=== PATIENT | male | born 1940 | race Caucasian/White ===

== ENCOUNTER 2016-07-26 14:10 | Emergency (ER) | payer OTHER ==
--- NOTE | 2016-07-26 17:56 | ED CLINICAL REPORT ---
Clinical Report - Physicians/Mid Levels [facility] [address] [place] [address] 07/26/2016 14:12 Patient: WALESKA SR Time Seen: 1428. Arrived- By private vehicle. Historian- patient. HISTORY OF PRESENT ILLNESS Chief Complaint: General fatigue. At its maximum, severity described as moderate. When seen in the E.D., severity described as moderate. This started about 2 days ago and is still present. No loss of appetite, weight loss, headache, visual disturbance or fatigue. No weakness. Denies sleep problem. He has had mild muscle aches. No decreased urine output. 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 He was admitted to [facility] last week for this, and then [place]dis[place] and [place] through his PICC line. Patient is getting ertapenem. Patient states that about 2 days ago he just began to feel "punk". He clarifies this to mean that he feels somewhat fatigued and just generally ill. Patient has had a low-grade fever at one point in time, butdoes not complain of fever today. He denies chest or abdominal pain and no shortness of breath or cough. Patient denies any dysuria or low back pain that is unusual for him. Patient denies any redness or increased discharge and his ulcer site.). Similar symptoms previously: None. Recent medical care: The patient was seen recently at another facility. REVIEW OF SYSTEMS No fever, sore throat, sinus drainage, nasal congestion or cough. No difficulty breathing, chest pain, abdominal pain, nausea or vomiting. No diarrhea, black stools, bloody stools, chills or difficulty with urination. No skin rash, back pain, calf pain, headache or blackouts. No double vision. No difficulty with ambulation. All systems otherwise negative, except as recorded above. PAST HISTORY Problems: Wound Infection [Active]. Back Pain. Afib. Additional Surgeries: Appendectomy. Back Surgery. Knee Surgery. Shoulder Surgery. Tonsillectomy. Allergies: Feldene. Iodine. [place]. SOCIAL HISTORY Smoker- current status unknown. No alcohol use or drug use. ADDITIONAL NOTES The nursing notes have been reviewed. PHYSICAL EXAM Vital Signs: 07/26/2016 14:26 BP: 141/63. HR: 87. RR: 18. O2 saturation: 95%. Temp: 97.9 F. Pain level now: 06/05. Have been reviewed. Appearance: Alert. No acute distress. Eyes: Pupils equal, round and reactive to light. Eyes normal inspection. ENT: Nose normal. Neck: Normal inspection. CVS: Normal heart rate and rhythm. Heart sounds normal. Pulses normal. Respiratory: No respiratory distress. Breath sounds normal. Abdomen: No visible injury. Soft and nontender. Back: Normal inspection. CVA tenderness. Skin: Skin warm and dry. Normal skin color. Normal skin turgor. (Patient has an approximately 5 cm diameter, stage III ulcer overlying his right hip. A mild amount of serosanguinous fluid is noted to be draining from the wound; however no pus is noted.). Extremities: Extremities exhibit normal ROM. No lower extremity edema. Neuro: No motor deficit. No sensory deficit. (he patient answers questions appropriately.). LABS, X-RAYS, AND EKG Laboratory Tests: UA-Culture if indicated: (MIGUELANGEL: 07/26/2016 15:45) ( [facility] 17[facility]00[facility] IP Test Result Flag Units (Reference) URINE COLOR YELLOW URINE APPEARANCE CLEAR URINE GLUCOSE NEGATIVE (NEGATIVE) URINE BILIRUBIN NEGATIVE (NEGATIVE) URINE KETONE NEGATIVE (NEGATIVE) URINE SPECIFIC GRAVITY 1.010 (1.010-1.030) URINE PH 5.5 (5.0-8.0) URINE PROTEIN NEGATIVE (NEGATIVE) URINE UROBILINOGEN 0.2 EU/dL (0.2-1.0) URINE NITRITE NEGATIVE (NEGATIVE) URINE BLOOD NEGATIVE (NEGATIVE) URINE LEUK ESTERASE NEGATIVE (NEGATIVE) CBC w Diff: (MIGUELANGEL: 07/26/2016 15:05) ( [facility] 07/26/2016 15:29) Final results Test Result Flag Units (Reference) WHITE BLOOD COUNT 5.9 K/uL (4.5-11.5) RED BLOOD COUNT 3.82 L M/uL (4.50-5.90) HEMOGLOBIN 10.3 L gm/dL (13.5-17.5) HEMATOCRIT 31.9 L % (41.0-53.0) MEAN CELL VOLUME 84 fL (80-100) MEAN CORPUSCULAR HGB 27 pg (26-34) MEAN CORPUSCULAR HGB CONC 32 g/dL (31-37) RED CELL DISTRIBUTION WIDTH 16.4 H % (11.6-14.8) PLATELET COUNT 292 K/uL (150-400) NEUTROPHIL % 61.3 % (50-75) LYMPH % 22.3 L % (25-40) MONO % 9.1 % (3-14) EOSINOPHIL % 6.8 H % (0-4) BASOPHIL % 0.5 % (0-2) CHEM 13 PANEL: (MIGUELANGEL: 07/26/2016 15:05) ( MsgRcvd 07/26/2016 15:57) Final results Test Result Flag Units (Reference) GLUCOSE 107 mg/dL (70-110) BUN 26 H mg/dL (7-18) CREATININE 1.0 mg/dL (0.6-1.3) Estimated GFR >60 mL/min Estimated GFR- >60 mL/min Note: Persistent reduction over 3 months in eGFR<60 mL/min/1.73 m2 defines CKD. Patients with eGFR values>=60 mL/min/1.73 m2 may also have CKD if evidence ofpersistent proteinuria. Additional information may be foundat www.kidney.org. SODIUM 140 mmol/L (136-145) POTASSIUM 3.9 mmol/L (3.5-5.1) CHLORIDE 100 mmol/L (98-107) CARBON DIOXIDE 35 H mmol/L (21-32) CALCIUM 7.6 L mg/dL (8.5-10.1) TOTAL PROTEIN 7.7 g/dL (6.4-8.2) ALBUMIN 2.8 L g/dL (3.3-5.0) BILIRUBIN, TOTAL 0.2 mg/dL (0.0-1.0) ALKALINE PHOSPHATASE 74 U/L (46-116) AST (SGOT) 33 U/L (15-37) ALT (SGPT) 19 U/L (12-78) MAGNESIUM 2.0 mg/dL (1.8-2.4) CPK 156 U/L (24-260) TROPONIN I <0.05 ng/mL (0.00-1.5) TROPONIN REFERENCE RANGE:<0.1 NEGATIVE0.1-1.5 INDETERMINANT>1.5 POSITIVE . Pulse Oximetry: 07/26/2016 14:26 O2 saturation: 95%. (FIO2 - room air). Interpretation: normal. PROGRESS AND PROCEDURES Course of Care: Patient was worked up with laboratory studies which were found to be unremarkable. I did discuss with the patient and his family that no emergent condition has been identified. Patient and family were both comfortable with the patient being discharged home. Patient and family counseled in person regarding the patient's stable condition, test results, diagnosis and need for follow-up. Old medical records reviewed. Disposition: Discharged. Condition: stable. CLINICAL IMPRESSION Acute generalized weakness. INSTRUCTIONS (The labs look good, overall. There is mild anemia, which could contribute to weakness. This is unlikely to be a recent development, but it might help to take iron supplements, to boost your red blood cells.). Warnings: GENERAL WARNINGS: Return or contact your physician immediately if your condition worsens or changes unexpectedly, if not improving as expected, or if other problems arise. Your Current Medications: CONTINUE TAKING THE FOLLOWING MEDICATIONS: Amiodarone HCL Oral. ARIPiprazole Oral : Tablet 5 mg, 1 tablet day. Clotrimazole External : Small amount 2x a day. Colace Oral : 100 mg daily. Cymbalta Oral : 30MG HS. Eliquis Oral : Tablet 5 mg, 1 tablet day. Ertapenem Sodium Intravenous. Flomax Oral : 0.4 mg at bedtime. Lasix 40mg BID*. Lyrica Oral : Capsule 100 mg, 1 capsule TID. MetFORMIN HCl Oral : 500 mg 2x a day. Metoprolol Tartrate Oral : 12.5 DAY. MiraLax Oral : 1 packet daily. Mirtazapine Oral : 15 mg at bedtime. Potassium 10meq day *. ROPINIRole HCl Oral : Tablet 0.25 mg, am,1tab noon, 3 tabs at hs. Vitamin D Oral : Capsule 2000 unit, 1 capsule d. Zolpidem Tartrate Oral : 10 mg at bedtime. Prescription Medications: Ferrous sulfate 325 mg: take 1 tablet orally every day. Dispense thirty (30). No refills. Hydromorphone 2 mg: take 1-2 tablets orally every 6 hours as needed for pain. Dispense twenty (20). No refill. Follow-up: Follow up with your doctor as scheduled. Understanding of the discharge instructions verbalized by patient and family. (Electronically signed by Nataly Cordero MD 07/29/2016 22:54)
--- NOTE | 2016-07-26 17:56 | ED NURSING NOTES ---
Clinical Report - Nurses [facility] [address] [place] [address] 07/26/2016 14:12 [id number] Triage time 14:27. Acuity: LEVEL 3. Chief Complaint: FATIGUE, DIZZINESS and WEAKNESS ("Just not feeling right today, warm, tendancy to fall asleep, weak." Admitted to [facility] 1 week ago for the same and the rt hip wound.). Alert. No acute distress. MARIA DEL CARMEN COMA SCORE: Maria Del Carmen Coma Scale: 15- eyes open spontaneously (4); best verbal response- oriented x 4 (5); best motor response- obeys commands (6). --14:41 Joelle Espino R.N. 14:26 07/26/16. BP: 141/63. HR: 87. RR: 18. O2 saturation: 95% on room air. Temp: 97.9 F. Pain level now: 06/05. --14:41 Joelle Espino R.N. 14:26 07/26/16. BP: 141/63. HR: 87. RR: 18. O2 saturation: 95% on room air. Temp: 97.9 F. Pain level now: 06/05. --14:41 Joelle Espino R.N. Weight: 111.1 kg stated. Height/Length: 72 inches Per Patient. BMI: 33.2. --14:28 Joelle Espino R.N. Medications Amiodarone HCL Oral. --15:22 Joelle Espino R.N. Lasix 40mg BID. --15:24 Joelle Espino R.N. Eliquis Oral (Tablet 5 mg) 1 tablet, day. --15:25 Joelle Espino R.N. Ertapenem Sodium Intravenous. MetFORMIN HCl Oral 500 mg, 2x a day. --15:25 Joelle Espino R.N. ARIPiprazole Oral (Tablet 5 mg) 1 tablet, day. --15:26 Joelle Espino R.N. Vitamin D Oral (Capsule 2000 unit) 1 capsule, d. --15:26 Joelle Espino R.N. Clotrimazole External Small amount, 2x a day. --15:27 Joelle Espino R.N. Colace Oral 100 mg, daily. --15:27 Joelle Espino R.N. Cymbalta Oral 30MG HS . --15:29 Joelle Espino R.N. Metoprolol Tartrate Oral 12.5, DAY. --15:31 Joelle Espino R.N. Mirtazapine Oral 15 mg, at bedtime. --15:32 Joelle Espino R.N. MiraLax Oral 1 packet, daily. --15:34 Joelle Espino R.N. Potassium 10meq day . --15:34 Joelle Espino R.N. Lyrica Oral (Capsule 100 mg) 1 capsule, TID. --15:35 Joelle Espino R.N. ROPINIRole HCl Oral (Tablet 0.25 mg) am,1tab noon, 3 tabs at hs . --15:43 Joelle Espino R.N. Flomax Oral 0.4 mg, at bedtime. --15:43 Joelle Espino R.N. Zolpidem Tartrate Oral 10 mg, at bedtime. --15:43 Joelle Espino R.N. The following entry was struck and corrected by Joelle Espino R.N., 15:45 (07/26/16) Reason for correction - other(correction). <<STRICKEN ENTRY-- Eliquis Oral. --15:25 Joelle Espino R.N. --END STRIKE>>. Allergies Feldene. --14:32 Joelle Espino R.N. Iodine. [place]. --14:33 Joelle Espino R.N. Gabapentin. --15:21 Joelle Espino R.N. Medication/allergy information source: the patient and patient's family. --14:41 Joelle Espino R.N. History Arrived by private vehicle. Historian: patient and family. Accompanied by family. Primary physician ([facility]). This started yesterday. He has had fever and weakness. Reports muscle aches. ( "Just not right"). 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 PAST MEDICAL HX: Immunizations: status is unknown. SOCIAL HX: Smoker- current status unknown. No alcohol use or drug use. FALL RISK ASSESSMENT: Fall risk assessment completed. No fall risk identified. NUTRITIONAL RISK ASSESSMENT: The nutritional risk assessment revealed no deficiencies. FUNCTIONAL ASSESSMENT: Functional assessment: no impairments noted. LEARNING NEEDS ASSESSMENT: The learning needs assessment revealed no barriers. SKIN INTEGRITY ASSESSMENT: Skin integrity risk assessment completed. No skin integrity risk identified. --14:41 Joelle Espino R.N. PROBLEMS: Wound Infection [Active]. --14:37 Joelle Espino R.N. Back Pain. Afib. --14:40 Joelle Espino R.N. ADDITIONAL SURGERIES: Appendectomy. Back Surgery. Knee Surgery. Shoulder Surgery. Tonsillectomy. --14:40 Joelle Espino R.N. Interventions ID band on patient. To room. --14:41 Joelle Espino R.N. PHYSICAL ASSESSMENT To room via wheelchair. Patient gowned. GENERAL / NEURO / PSYCH: Alert. Oriented X 4. Appears in no acute distress. Appears anxious. HEENT: Mucous membranes are pink. RESPIRATORY: Respirations not labored. CVS: Capillary refill less than 2 seconds. GI / : Abdomen nontender. SKIN: Skin is warm and dry. Normal skin turgor. ( wound to rt hip, currently outpt antibiotics for wound.). --14:42 Joelle Espino R.N. NURSING PROGRESS NOTES Patient gowned. Head of bed elevated. Two patient identifiers checked. Call light placed in reach. Side rails up x 2. Bed placed in lowest position. Brakes of bed on. Patient ready for evaluation. --14:42 Joelle Espino R.N. Packing removed. Dressing changed. Applied wet-to-dry dressing. Secured with tape. --15:15 Andi Soliman R.N. 15:15. ( Blood drawn from the rt upper arm picc, Grn, red, and purple tubes. Ns started at 1000ml/hr.). --16:01 Joelle Espino R.N. late entry - 16:35. ( Bag 1 infused. Total amount infused 1000 mL.). --16:47 Domitila Coyle R.N. 16:50. Patient ID band checked for patient name: patient confirmed. Instructions provided to collect clean catch urine and patient verbalized understanding. Clean catch urine collected with return of yellow-colored clear urine; sample sent to lab for urinalysis and culture. Specimen labeled in the presence of the patient. --17:05 Joelle Espino R.N. 17:07 07/26/16. BP: 128/78. HR: 84. RR: 18. O2 saturation: 97% on room air. 16:00 07/26/16. BP: 136/75. HR: 81. RR: 20. O2 saturation: 98% on room air. --17:09 Joelle Espino R.N. DISPOSITION / DISCHARGE Condition at departure: improved. No learning barriers present. Discharge instructions provided and reviewed with the patient. Reviewed medication(s) side effects, precautions, dosing and course information. Prescription(s) given to the patient. Patient and family verbalized understanding. Written instructions provided in [place]. The patient was discharged home and accompanied by family. He left the Emergency Department ambulatory and via private vehicle. Family member driving. Medication list reviewed and validated. --18:42 Joelle Espino R.N. 18:10 07/26/16. BP: 136/88. HR: 70. RR: 20. O2 saturation: 97% on room air. Temp: deferred. Pain level now: 09/05. 17:07 07/26/16. BP: 128/78. HR: 84. RR: 18. O2 saturation: 97% on room air. 16:00 07/26/16. BP: 136/75. HR: 81. RR: 20. O2 saturation: 98% on room air. 14:26 07/26/16. BP: 141/63. HR: 87. RR: 18. O2 saturation: 95% on room air. Temp: 97.9 F. Pain level now: 06/05. --18:42 Joelle Espino R.N. Locked/Released at 07/26/2016 18:42 by Joelle Espino R.N.
--- NOTE | 2016-07-26 17:56 | ED ORDER SUMMARY ---
..... Patient: WALESKA SR OrderSheet [facility] VisitID: [id number] [address] [place] [address] 76y, M Registration Date/Time: 07/26/2016 ORDER SHEET Weight: 111.1 kg (stated) Allergies: Feldene, Iodine, [place], Gabapentin GENERAL ORDERS: Cardiac Panel Stat (14:45 07/26/2016 Mckenzie HAM) (Ack 14:46 PWeiler ER Tech1) (15:54 SRoberts R.N.) UA-Culture if indicated Urgent (14:45 07/26/2016 Mckenzie HAM) (Ack 14:46 PWeiler ER Tech1) MEDICATION ORDERS: IV FLUIDS: IV NS : initial bolus 1000 mL (1000 mL/hr), then none - (NOW) (14:44 07/26/2016 Mckenzie HAM) (Ack 15:59 SRoberts R.N.) ORDER SHEET NOTES: [Electronically signed by Joelle Espino R.N. (18:42 07/26/2016)] [Electronically signed by Nataly Cordero MD (22:54 07/29/2016)] [Electronically locked/signed by Joelle Espino R.N. (18:42 07/26/2016)]
--- NOTE | 2016-07-26 17:56 | ED NURSING NOTES ---
Clinical Report - Nurses [facility] [address] [place] [address] 07/26/2016 14:12 [id number] Triage time 14:27. Acuity: LEVEL 3. Chief Complaint: FATIGUE, DIZZINESS and WEAKNESS ("Just not feeling right today, warm, tendancy to fall asleep, weak." Admitted to [facility] 1 week ago for the same and the rt hip wound.). Alert. No acute distress. MARIA DEL CARMEN COMA SCORE: Maria Del Carmen Coma Scale: 15- eyes open spontaneously (4); best verbal response- oriented x 4 (5); best motor response- obeys commands (6). --14:41 Joelle Espino R.N. 14:26 07/26/16. BP: 141/63. HR: 87. RR: 18. O2 saturation: 95% on room air. Temp: 97.9 F. Pain level now: 06/05. --14:41 Joelle Espino R.N. 14:26 07/26/16. BP: 141/63. HR: 87. RR: 18. O2 saturation: 95% on room air. Temp: 97.9 F. Pain level now: 06/05. --14:41 Joelle Espino R.N. Weight: 111.1 kg stated. Height/Length: 72 inches Per Patient. BMI: 33.2. --14:28 Joelle Espino R.N. Medications Amiodarone HCL Oral. --15:22 Joelle Espino R.N. Lasix 40mg BID. --15:24 Joelle Espino R.N. Eliquis Oral (Tablet 5 mg) 1 tablet, day. --15:25 Joelle Espino R.N. Ertapenem Sodium Intravenous. MetFORMIN HCl Oral 500 mg, 2x a day. --15:25 Joelle Espino R.N. ARIPiprazole Oral (Tablet 5 mg) 1 tablet, day. --15:26 Joelle Espino R.N. Vitamin D Oral (Capsule 2000 unit) 1 capsule, d. --15:26 Joelle Espino R.N. Clotrimazole External Small amount, 2x a day. --15:27 Joelle Espino R.N. Colace Oral 100 mg, daily. --15:27 Joelle Espino R.N. Cymbalta Oral 30MG HS . --15:29 Joelle Espino R.N. Metoprolol Tartrate Oral 12.5, DAY. --15:31 Joelle Espino R.N. Mirtazapine Oral 15 mg, at bedtime. --15:32 Joelle Espino R.N. MiraLax Oral 1 packet, daily. --15:34 Joelle Espino R.N. Potassium 10meq day . --15:34 Joelle Espino R.N. Lyrica Oral (Capsule 100 mg) 1 capsule, TID. --15:35 Joelle Espino R.N. ROPINIRole HCl Oral (Tablet 0.25 mg) am,1tab noon, 3 tabs at hs . --15:43 Joelle Espino R.N. Flomax Oral 0.4 mg, at bedtime. --15:43 Joelle Espino R.N. Zolpidem Tartrate Oral 10 mg, at bedtime. --15:43 Joelle Espino R.N. The following entry was struck and corrected by Joelle Espino R.N., 15:45 (07/26/16) Reason for correction - other(correction). <<STRICKEN ENTRY-- Eliquis Oral. --15:25 Joelle Espino R.N. --END STRIKE>>. Allergies Feldene. --14:32 Joelle Espino R.N. Iodine. [place]. --14:33 Joelle Espino R.N. Gabapentin. --15:21 Joelle Espino R.N. Medication/allergy information source: the patient and patient's family. --14:41 Joelle Espino R.N. History Arrived by private vehicle. Historian: patient and family. Accompanied by family. Primary physician ([facility]). This started yesterday. He has had fever and weakness. Reports muscle aches. ( "Just not right"). 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 PAST MEDICAL HX: Immunizations: status is unknown. SOCIAL HX: Smoker- current status unknown. No alcohol use or drug use. FALL RISK ASSESSMENT: Fall risk assessment completed. No fall risk identified. NUTRITIONAL RISK ASSESSMENT: The nutritional risk assessment revealed no deficiencies. FUNCTIONAL ASSESSMENT: Functional assessment: no impairments noted. LEARNING NEEDS ASSESSMENT: The learning needs assessment revealed no barriers. SKIN INTEGRITY ASSESSMENT: Skin integrity risk assessment completed. No skin integrity risk identified. --14:41 Joelle Espino R.N. PROBLEMS: Wound Infection [Active]. --14:37 Joelle Espino R.N. Back Pain. Afib. --14:40 Joelle Espino R.N. ADDITIONAL SURGERIES: Appendectomy. Back Surgery. Knee Surgery. Shoulder Surgery. Tonsillectomy. --14:40 Joelle Espino R.N. Interventions ID band on patient. To room. --14:41 Joelle Espino R.N. PHYSICAL ASSESSMENT To room via wheelchair. Patient gowned. GENERAL / NEURO / PSYCH: Alert. Oriented X 4. Appears in no acute distress. Appears anxious. HEENT: Mucous membranes are pink. RESPIRATORY: Respirations not labored. CVS: Capillary refill less than 2 seconds. GI / : Abdomen nontender. SKIN: Skin is warm and dry. Normal skin turgor. ( wound to rt hip, currently outpt antibiotics for wound.). --14:42 Joelle Espino R.N. NURSING PROGRESS NOTES Patient gowned. Head of bed elevated. Two patient identifiers checked. Call light placed in reach. Side rails up x 2. Bed placed in lowest position. Brakes of bed on. Patient ready for evaluation. --14:42 Joelle Espino R.N. Packing removed. Dressing changed. Applied wet-to-dry dressing. Secured with tape. --15:15 Andi Soliman R.N. 15:15. ( Blood drawn from the rt upper arm picc, Grn, red, and purple tubes. Ns started at 1000ml/hr.). --16:01 Joelle Espino R.N. late entry - 16:35. ( Bag 1 infused. Total amount infused 1000 mL.). --16:47 Domitila Coyle R.N. 16:50. Patient ID band checked for patient name: patient confirmed. Instructions provided to collect clean catch urine and patient verbalized understanding. Clean catch urine collected with return of yellow-colored clear urine; sample sent to lab for urinalysis and culture. Specimen labeled in the presence of the patient. --17:05 Joelle Espino R.N. 17:07 07/26/16. BP: 128/78. HR: 84. RR: 18. O2 saturation: 97% on room air. 16:00 07/26/16. BP: 136/75. HR: 81. RR: 20. O2 saturation: 98% on room air. --17:09 Joelle Espino R.N. DISPOSITION / DISCHARGE Condition at departure: improved. No learning barriers present. Discharge instructions provided and reviewed with the patient. Reviewed medication(s) side effects, precautions, dosing and course information. Prescription(s) given to the patient. Patient and family verbalized understanding. Written instructions provided in Pakistani. The patient was discharged home and accompanied by family. He left the Emergency Department ambulatory and via private vehicle. Family member driving. Medication list reviewed and validated. --18:42 Joelle Espino R.N. 18:10 07/26/16. BP: 136/88. HR: 70. RR: 20. O2 saturation: 97% on room air. Temp: deferred. Pain level now: 09/05. 17:07 07/26/16. BP: 128/78. HR: 84. RR: 18. O2 saturation: 97% on room air. 16:00 07/26/16. BP: 136/75. HR: 81. RR: 20. O2 saturation: 98% on room air. 14:26 07/26/16. BP: 141/63. HR: 87. RR: 18. O2 saturation: 95% on room air. Temp: 97.9 F. Pain level now: 06/05. --18:42 Joelle Espino R.N. Locked/Released at 07/26/2016 18:42 by Joelle Espino R.N.
--- NOTE | 2016-07-26 17:56 | ED ORDER SUMMARY ---
..... Patient: WALESKA SR OrderSheet [facility] VisitID: [id number] [address] [place] [address] 76y, M Registration Date/Time: 07/26/2016 ORDER SHEET Weight: 111.1 kg (stated) Allergies: Feldene, Iodine, [place], Gabapentin GENERAL ORDERS: Cardiac Panel Stat (14:45 07/26/2016 Mckenzie HAM) (Ack 14:46 PWeiler ER Tech1) (15:54 SRoberts R.N.) UA-Culture if indicated Urgent (14:45 07/26/2016 Mckenzie HAM) (Ack 14:46 PWeiler ER Tech1) MEDICATION ORDERS: IV FLUIDS: IV NS : initial bolus 1000 mL (1000 mL/hr), then none - (NOW) (14:44 07/26/2016 Mckenzie HAM) (Ack 15:59 SRoberts R.N.) ORDER SHEET NOTES: [Electronically signed by Joelle Espino R.N. (18:42 07/26/2016)] [Electronically signed by Nataly Cordero MD (22:54 07/29/2016)] [Electronically locked/signed by Joelle Espino R.N. (18:42 07/26/2016)]
--- NOTE | 2016-07-29 22:54 | ED MED RECONCILIATION SUMMARY ---
Patient: WALESKA SR Medication Reconciliation Report [facility] VisitID: [id number] [address] [place] [address] 76y, M Registration Date/Time: 07/26/2016 Weight: 111.1 kg Height/Length: 72 in. BMI: 33.2 ALLERGIES: Feldene, Gabapentin, Iodine, [place] The patient's Home Medications are listed below: CONTINUE TAKING THE FOLLOWING MEDICATIONS: Amiodarone HCL Oral ARIPiprazole Oral (5 mg) 1 tablet, day Clotrimazole External Small amount, 2x a day Colace Oral 100 mg, daily Cymbalta Oral 30MG HS Eliquis Oral (5 mg) 1 tablet, day Ertapenem Sodium Intravenous Flomax Oral 0.4 mg, at bedtime Lasix 40mg BID Lyrica Oral (100 mg) 1 capsule, TID MetFORMIN HCl Oral 500 mg, 2x a day Metoprolol Tartrate Oral 12.5, DAY MiraLax Oral 1 packet, daily Mirtazapine Oral 15 mg, at bedtime Potassium 10meq day ROPINIRole HCl Oral (0.25 mg) am,1tab noon, 3 tabs at hs Vitamin D Oral (2000 unit) 1 capsule, d Zolpidem Tartrate Oral 10 mg, at bedtime The source(s) of the original Home Medication information: patient's family member patient The following Medications were given to the patient in the Emergency Department: None. The following Medications were prescribed to the patient: Ferrous sulfate 325 mg: take 1 tablet orally every day. Dispense thirty (30). No refills. -- Nataly Cordero MD Hydromorphone 2 mg: take 1-2 tablets orally every 6 hours as needed for pain. Dispense twenty (20). No refill. -- Nataly Cordero MD
--- NOTE | 2016-07-29 22:54 | ED MAR SUMMARY ---
..... Medication Administration Record [facility] [address] [place], [place] [id number] Patient: WALESKA SR Visit ID: [id number] 76y, M Weight: 111.1 kg Height/Length: 72 in BMI: 33.2 ALLERGIES: Alfred, Iodine, Feldene, Gabapentin
--- NOTE | 2016-07-29 22:54 | ED DISCHARGE INSTRUCTIONS ---
Patient: WALESKA SR General Instructions [facility] VisitID: [id number] [address] [place] [address] 76y, M Registration Date/Time: 07/26/2016 Acute generalized weakness. INSTRUCTIONS (The labs look good, overall. There is mild anemia, which could contribute to weakness. This is unlikely to be a recent development, but it might help to take iron supplements, to boost your red blood cells.). Warnings: GENERAL WARNINGS: Return or contact your physician immediately if your condition worsens or changes unexpectedly, if not improving as expected, or if other problems arise. Your Current Medications: CONTINUE TAKING THE FOLLOWING MEDICATIONS: Amiodarone HCL Oral. ARIPiprazole Oral : Tablet 5 mg, 1 tablet day. Clotrimazole External : Small amount 2x a day. Colace Oral : 100 mg daily. Cymbalta Oral : 30MG HS. Eliquis Oral : Tablet 5 mg, 1 tablet day. Ertapenem Sodium Intravenous. Flomax Oral : 0.4 mg at bedtime. Lasix 40mg BID*. Lyrica Oral : Capsule 100 mg, 1 capsule TID. MetFORMIN HCl Oral : 500 mg 2x a day. Metoprolol Tartrate Oral : 12.5 DAY. MiraLax Oral : 1 packet daily. Mirtazapine Oral : 15 mg at bedtime. Potassium 10meq day *. ROPINIRole HCl Oral : Tablet 0.25 mg, am,1tab noon, 3 tabs at hs. Vitamin D Oral : Capsule 2000 unit, 1 capsule d. Zolpidem Tartrate Oral : 10 mg at bedtime. Prescription Medications: Ferrous sulfate 325 mg: take 1 tablet orally every day. Dispense thirty (30). No refills. Hydromorphone 2 mg: take 1-2 tablets orally every 6 hours as needed for pain. Dispense twenty (20). No refill. Follow-up: Follow up with your doctor as scheduled. Understanding of the discharge instructions verbalized by patient and family. ADDITIONAL INFORMATION Weakness [Uncertain Cause] Based on your exam today, the exact cause of your weakness is not certain. However, your weakness does not seem to be a sign of a serious illness at this time. Sometimes the signs of a serious illness take more time to appear. Therefore, please watch for the warning signs listed below. Home Care: 1) Rest at home today. Do not over-exert yourself. 2) Take your medicine as prescribed. 3) For the next few days, drink extra fluids (unless your doctor wants you to restrict fluids for other reasons). Do not skip meals. Follow Up with your doctor or as advised if you are not starting to feel better within TWO days. Get Prompt Medical Attention if any of the following occur: Worsening of your symptoms Chest, arm, neck, jaw or upper back pain Dizziness or fainting Trouble breathing Unable to eat or drink normal amounts Nausea, frequent vomiting, frequent diarrhea Abdominal pain Numbness or weakness of the face, one arm or one leg Slurred speech, confusion, trouble speaking, walking or seeing Blood in vomit or stool (black or red color) Fever of 100.4 F (38 C) or higher, or as directed by your healthcare provider You have been given the following additional information: Weakness, Unk Cause (Electronically signed by Nataly Cordero MD 07/29/2016 22:54)
--- NOTE | 2016-07-29 22:54 | ED MED RECONCILIATION SUMMARY ---
Patient: WALESKA SR Medication Reconciliation Report [facility] VisitID: [id number] [address] [place] [address] 76y, M Registration Date/Time: 07/26/2016 Weight: 111.1 kg Height/Length: 72 in. BMI: 33.2 ALLERGIES: Feldene, Gabapentin, Iodine, [place] The patient's Home Medications are listed below: CONTINUE TAKING THE FOLLOWING MEDICATIONS: Amiodarone HCL Oral ARIPiprazole Oral (5 mg) 1 tablet, day Clotrimazole External Small amount, 2x a day Colace Oral 100 mg, daily Cymbalta Oral 30MG HS Eliquis Oral (5 mg) 1 tablet, day Ertapenem Sodium Intravenous Flomax Oral 0.4 mg, at bedtime Lasix 40mg BID Lyrica Oral (100 mg) 1 capsule, TID MetFORMIN HCl Oral 500 mg, 2x a day Metoprolol Tartrate Oral 12.5, DAY MiraLax Oral 1 packet, daily Mirtazapine Oral 15 mg, at bedtime Potassium 10meq day ROPINIRole HCl Oral (0.25 mg) am,1tab noon, 3 tabs at hs Vitamin D Oral (2000 unit) 1 capsule, d Zolpidem Tartrate Oral 10 mg, at bedtime The source(s) of the original Home Medication information: patient's family member patient The following Medications were given to the patient in the Emergency Department: None. The following Medications were prescribed to the patient: Ferrous sulfate 325 mg: take 1 tablet orally every day. Dispense thirty (30). No refills. -- Nataly Cordero MD Hydromorphone 2 mg: take 1-2 tablets orally every 6 hours as needed for pain. Dispense twenty (20). No refill. -- Nataly Cordero MD
--- NOTE | 2016-07-29 22:54 | ED MAR SUMMARY ---
..... Medication Administration Record [facility] [address] [place], [place] [id number] Patient: WALESKA SR Visit ID: [id number] 76y, M Weight: 111.1 kg Height/Length: 72 in BMI: 33.2 ALLERGIES: [place], Iodine, Feldene, Gabapentin
== END 2016-07-26 18:10 | disposition home or self-care (01) ==
LOC: ED SRH 14:10
DX: R53.1 Weakness (principal); Z79.899 Other long term (current) drug therapy; Z88.6 Allergy status to analgesic agent; Z88.8 Allergy status to other drugs, medicaments and biological substances
CPT/HCPCS: 90004; 90100; 90616; 92610; 92720; 95059

== ENCOUNTER 2016-09-14 10:29 | Outpatient (CLI) | payer OTHER ==
--- NOTE | 2016-09-14 14:13 | DIAGNOSTIC IMAGING REPORT ---
PROCEDURE: MR LOWER EXT JOINT W/WO-RIGHT INDICATION: RT LATERAL TROCHANTERIC OSTEOMYELITIS TECHNIQUE: Coronal, sagittal and axial T1 STIR sequences. 10 ml of ProHance administered IV and coronal, sagittal and axial T1 fat sat sequences were obtained through the right hip. COMPARISON: Right hip MRI from [facility] 07/15/2016 and 06/09/2016. FINDINGS: Again seen is the deep lateral right hip soft tissue wound overlying the trochanter, with improved soft tissue edema. There is a cortical interruption, abnormal decreased T1 and increased T2 signal with enhancement, unchanged. No evidence of an abscess. Mild bilateral hip osteoarthritic changes. SI joints are unremarkable. No pelvic mass, adenopathy or free fluid. IMPRESSION: 1. Stable abnormal bone marrow signal changes of the right proximal femur consistent with osteomyelitis 2. Overlying deep soft tissue wound with improving edema
== END 2016-09-15 15:48 | disposition home or self-care (01) ==
LOC: MRI SRH 10:29
DX: R60.9 Edema, unspecified (principal); M79.9 Soft tissue disorder, unspecified

== ENCOUNTER 2016-09-24 06:44 | Day surgery (SDC) | payer OTHER ==
[2016-09-24] VITALS (7 sets, daily range): BP systolic 107–144; BP diastolic 54–75
[~2016-09-24] VITALS: Ht 182.9 cm; Wt 114.0 kg
[~2016-09-24 06:44] MED LIST: AMIODARONE HCL200 MG PO; ARIPIPRAZOLE5 MG PO; ATORVASTATIN CA40 MG PO; COLACE100 MG PO; ELIQUIS5 MG PO; KETOCONAZOLE22; LASIX40 MG PO; METOPROLOL TART25 MG PO; ROPINIROLE HC0.25 MG PO; TAMSULOSIN HCL0.4 MG PO; VITAMIN D-31000 UNIT PO; ZOLPIDEM TARTRA10 MG PO; [UNRECOGNIZED DRUG - OTHER] PO
--- NOTE | 2016-09-24 10:24 | Operative Report ---
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 Surgical Technique: The pt. was taken to the operating room and given an anesthetic. IV antibiotics were on board and a sterile prep and drape were done. A local of 1/2% marcaine with epi was used. A longtitudinal ellipse was done and the ulcer tissue excised down to bone. A rongeur was used to debride bone and a deep bone biopsy was sent. Flaps were dissected laterally creating a fascial flap and a skin and sub q flap. A 10mm JOSE drain was placed in the deep plane and the fascia closed with running 2-0 vicryl. A 7mm drain was placed in the sub q plane and interupted 2- 0 was used to approximate the deep dermis. Running subcuticular 3-0 was used on the skin. Strip and dressings were placed. The drains were secured with 3-0 nylon.
[2016-09-24] MEDS ORDERED: LINEZOLID600 MG PO (12:54)
[2016-09-24] MEDS ORDERED: NORCO1 TA1 PO (15:47)
--- NOTE | 2016-09-24 15:48 | Provider's Discharge Care Plan ---
Problem, Goal, Plan Problem List 1. Pressure ulcer
--- NOTE | 2016-09-24 15:48 | Provider's Discharge Care Plan ---
Problem, Goal, Plan Problem List 1. Pressure ulcer
[2016-09-25 01:56] VITALS: BP 101/58
[2016-09-25 06:53] VITALS: BP 134/66
[2016-09-25 10:03] VITALS: BP 124/56
--- NOTE | 2016-09-25 13:31 | Progress Note ---
Subjective General Postop day 1. Comfortable. Scheduled discharge. Physical Exam Vital Signs / I&Os Vital Signs Date Time Temp Pulse Resp B/P Pulse O2 O2 Flow FiO2 Ox Delivery Rate 09/25 1003 97.9 73 16 124/56 98 Room Air 0.0 09/25 0800 Room Air 0.0 09/25 0653 97.9 65 20 134/66 98 Nasal 1.0 Cannula 09/25 0156 98.8 66 15 101/58 95 Nasal 2.0 Cannula 09/25 0100 Nasal 1.0 Cannula 09/24 2303 98.4 92 19 133/75 95 Nasal 2.0 Cannula 09/24 1831 98.1 93 18 134/61 96 Nasal 2.0 Cannula 09/24 1623 Nasal 2.0 Cannula 09/24 1427 97.5 74 18 144/73 98 Nasal 2.0 Cannula I&O 09/24 0800 09/24 1600 09/25 0000 Intake Total 100 1307 1723 Output Total 121 2845 Balance 100 1186 -1122 General Appearance Alert, Oriented X3, Cooperative, No acute distress Skin Caden-Crump drains, draining the fluid. Dressing dry and intact Assessment and Plan Problem List 1. Pressure ulcer Plan Patient is stable for discharge. Wound care instructions given. Followup with Dr. Hassan as ordered
== END 2016-09-25 15:15 | disposition home or self-care (01) ==
LOC: OR SRH 06:44 → SCU SRH 06:44 → OR SRH 08:45 → ACUTE2 SRH 11:40 → OR SRH 09-25 15:15
PROVIDERS: Surgery
PROC: 0JXL0ZC Transfer Right Upper Leg Subcutaneous Tissue and Fascia with Skin, Subcutaneous Tissue and Fascia, Open Approach (ICD-10-PCS; principal; 2016-09-24 08:45)
PROC: 0QB60ZZ Excision of Right Upper Femur, Open Approach (ICD-10-PCS; principal; 2016-09-24 08:45)
DX: L89.214 Pressure ulcer of right hip, stage 4 (principal); M86.9 Osteomyelitis, unspecified; I48.91 Unspecified atrial fibrillation; Z79.01 Long term (current) use of anticoagulants